=== PATIENT | male | born 1975 | race Two or more races ===

== ENCOUNTER 2024-01-19 13:33 | Emergency (ER) | payer SELFPAY ==
[~2024-01-19] VITALS: Ht 160 cm; Wt 72.6 kg
[2024-01-19 13:57] VITALS: TEMP 98
[2024-01-19 17:11] VITALS: BP 135/89; O2SAT 99
== END 2024-01-19 17:11 | disposition home or self-care (01) ==
LOC: ER 13:39
DX: S16.1XXA Strain of muscle, fascia and tendon at neck level, initial encounter (principal); S09.8XXA Other specified injuries of head, initial encounter; M54.2 Cervicalgia; V43.52XA Car driver injured in collision with other type car in traffic accident, initial encounter; Y93.89 Activity, other specified; Y92.488 Other paved roadways as the place of occurrence of the external cause; Y99.8 Other external cause status
CPT/HCPCS: 70450-TC; 72125-TC